=== PATIENT | female | born 2000 | race Caucasian/White ===

== ENCOUNTER 2020-03-20 23:03 | Inpatient (IN) | payer MEDICAID ==
[~2020-03-20] VITALS: Ht 162.6 cm; Wt 56.6 kg
--- NOTE | 2020-03-20 23:09 | NUR ---
SAMARA SHI presented to unit via ambulation from ED, accompanied by s.o., with c/o CONTRACTIONS. SAMARA SHI weighed, gowned, voided, and to bed. EFHM and TOCO applied, VS taken. SAMARA SHI oriented to bed controls, call light, TV, heat, and A/C controls.
[2020-03-20 23:26] VITALS: BP 127/82
[2020-03-20 23:31] VITALS: BP 127/82
[2020-03-20 23:40] LABS: BILIRUBIN,URINE NEGATIVE (NEGATIVE); CLARITY,URINE CLEAR; COLOR,URINE YELLOW; GLUCOSE, URINE (UA) NEGATIVE (NEGATIVE); KETONES,URINE TRACE (NEGATIVE); LEUKOCYTE ESTERASE ,URINE 1+ (NEGATIVE); NITRITE,URINE NEGATIVE (NEGATIVE); PH,URINE 6.5 (5-9); PROTEIN,URINE TRACE (NEGATIVE)
[2020-03-20 23:49] LABS: BACTERIA,URINE LARGE /HPF
[2020-03-20] MEDS ORDERED: AMPICILLIN FOR IV USE 2,000 MG VIAL ONE (23:50)
[2020-03-20] MEDS ORDERED: WATER (STERILE) FOR INJECTION 20 ML ONE (23:50)
[2020-03-20] MEDS ORDERED: D5 LR IV SOLUTION 1,000 ML IV ONE (23:50)
[2020-03-20] MEDS ORDERED: D5 LR IV SOLUTION 1,000 ML IV SCH (23:56)
[2020-03-20] MEDS ORDERED: AMPICILLIN FOR IV USE 2,000 MG in WATER (STERILE) FOR INJECTION 14.8 ML IV SCH (23:56)
[2020-03-21] VITALS (20 sets, daily range): BP systolic 109–146; BP diastolic 55–81
[2020-03-21 00:34] LABS: BILIRUBIN,URINE NEGATIVE (NEGATIVE); CLARITY,URINE CLOUDY; COLOR,URINE YELLOW; GLUCOSE, URINE (UA) NEGATIVE (NEGATIVE); KETONES,URINE TRACE (NEGATIVE); LEUKOCYTE ESTERASE ,URINE TRACE (NEGATIVE); NITRITE,URINE NEGATIVE (NEGATIVE); PH,URINE 6.5 (5-9); PROTEIN,URINE 1+ (NEGATIVE)
[2020-03-21 00:36] LABS: BASOPHILS % (AUTO) 0 % (0-10); EOSINOPHILS # (AUTO) 0.1 10^3/uL (0.0-0.3); EOSINOPHILS % (AUTO) 1 % (0-10); HEMATOCRIT 34 % (35-52); HEMOGLOBIN 11.4 G/DL (11.5-16.0); LYMPHOCYTES # (AUTO) 1.6 X 10^3 (1.0-4.0); LYMPHOCYTES % (AUTO) 11 % (12-44); MEAN CORPUSCULAR HEMOGLOBIN 31 PG (25-34); MEAN CORPUSCULAR HGB CONC 33 G/DL (32-36); MEAN CORPUSCULAR VOLUME 95 FL (80-99); MEAN PLATELET VOLUME 9.6 FL (7.4-10.4); MONOCYTES # (AUTO) 1.1 X 10^3 (0.0-1.0); MONOCYTES % (AUTO) 7 % (0-12); NEUTROPHILS # (AUTO) 12.1 X 10^3 (1.8-7.8); NEUTROPHILS % (AUTO) 82 % (42-75); PLATELET COUNT 443 10^3/uL (130-400); RED CELL DISTRIBUTION WIDTH 13.9 % (10.0-14.5); WHITE BLOOD COUNT 14.9 10^3/uL (4.3-11.0)
[2020-03-21 00:48] LABS: BACTERIA,URINE TRACE /HPF; SQUAMOUS EPITHELIAL CELL,UR RARE /HPF; WBC,URINE 0-2 /HPF
[2020-03-21 01:21] LABS: AMPHETAMINE SCREEN, URINE NEGATIVE (NEGATIVE); BARBITURATE SCREEN URINE NEGATIVE (NEGATIVE); BENZODIAZEPINES SCREEN URINE NEGATIVE (NEGATIVE); CANNABINOID SCREEN, URINE POSITIVE (NEGATIVE); COCAINE SCREEN URINE NEGATIVE (NEGATIVE); METHADONE STAT NEGATIVE (NEGATIVE); METHAMPHETAMINE SCREEN URINE S NEGATIVE (NEGATIVE); OPIATE SCREEN URINE NEGATIVE (NEGATIVE); OXYCODONE STAT NEGATIVE (NEGATIVE); PROPOXYPHENE STAT NEGATIVE (NEGATIVE); TRICYCLIC ANTIDEPRESSANTS SCRE NEGATIVE (NEGATIVE)
[2020-03-21] MEDS ORDERED: fentaNYL 2 mcg/ml BUPIVA 0.125 0 ML ONE (01:25)
[2020-03-21] MEDS ORDERED: LIDOCAINE/EPI 1%-1:200,000 (XYLOCAINE) 30 ML VIAL INJ ONE (01:30)
[2020-03-21] MEDS ORDERED: LIDOCAINE PF 2% 5 ML (XYLOCAINE) VIAL ONE (01:45)
[2020-03-21] MEDS ORDERED: fentaNYL INJECTION 100 MCG/2 ML AMP ONE (01:45)
[2020-03-21] MEDS ORDERED: BUPIVACAINE 0.25% 30 ML (SENSORCAINE) VIAL ONE (01:45)
[2020-03-21] MEDS ORDERED: OXYTOCIN PRE-MIX DRIP 500 ML IV ONE (01:54)
[2020-03-21] MEDS ORDERED: LIDOCAINE/EPI 2% 1:200,00 (XYLOCAINE) 20 ML VIAL ONE ×2 (01:54→01:59)
--- NOTE | 2020-03-21 02:40 | History & Physical ---
History and Physical Date Seen by Provider: Mar 21, 2020 Time Seen by Provider: 02:00 His patient is a 19-year-old 1 white female who presented near midnight in active labor. Her cervix was dilated 4 cm she quickly progressed to 6 cm. She expressed rupture membranes approximately an hour after admission. Her GBS culture had been positive after 35 weeks gestation she was started on ampicillin on admission. She had no other problems with this . Allergies are none Medications are vitamins Medical social and surgical histories are per the antepartum record HEENT exam is normal Neck is supple no lymphadenopathy and no thyromegaly Abdomen is gravid soft nontender nondistended Extremities show no clubbing or cyanosis. There is no Homans sign. Pelvic exam on my arrival patient was completed dilated 100 percent effaced the presenting part was the vertex was . Assessment and plan 37 week gestation at the time of delivery. With a precipitous delivery. Patient had received ampicillin approximately 2 hours before delivery. Spontaneous vaginal delivery Allergies and Home Medications Allergies Coded Allergies: No Known Drug Allergies (Unverified , 03/20/20) Patient Home Medication List Home Medication List Reviewed: Yes Clinical Quality Measures DVT/VTE Risk/Contraindication: Risk Factor Score Per Nursin RFS Level Per Nursing on Admit: 2=Moderate NATALEE VIRAMONTES MD Mar 21, 2020 02:40
[2020-03-21] MEDS ORDERED: TETANUS,DIPTH,PERTUSS P/F (BOOSTRIX) 0.5 ML VIAL IM ONE (02:45)
[2020-03-21] MEDS ORDERED: oxyCODONE/APAP 5/325MG (PERCOCET 5) TABLET PO PRN (02:45)
[2020-03-21] MEDS ORDERED: DCS100C PO (02:45)
[2020-03-21] MEDS ORDERED: MEASLES,MUMPS,RUBELLA 1 EA INJ SC ONE (02:45)
[2020-03-21] MEDS ORDERED: IBUP-1780 PO (02:45)
[2020-03-21] MEDS ORDERED: BENZOCAINE/MENTHOL (DERMOPLAST) 60 ML CAN TP PRN (02:45)
[2020-03-21] MEDS ORDERED: ONDANSETRON 4 MG/2 ML (SDV) Z0FRAN IVP PRN (02:45)
[2020-03-21] MEDS ORDERED: OXYC1TAB87 PO (02:45)
--- NOTE | 2020-03-21 02:46 | Discharge Inst-Surgical ---
Discharge Inst-Surgical Depart Medication/Instructions New, Converted or Re-Newed RX: RX on Chart Consults/Follow Up Patient Instructions: As directed Orders & Referrals Follow Up Appt: Call to make follow up appt. for patient in 4 weeks. Activity Per routine post vaginal delivery instructions. Please call in RX to patient pharmacy. Diet as tolerated Patient may shower or tub bathe as desired. Activity Activity as Tolerated: No Diet Discharge Diet: No Restrictions NATALEE VIRAMONTES MD Mar 21, 2020 02:45
[2020-03-21] MEDS: KETOROLAC 30 MG/ML VIAL IVP SCH ×2 (03:56→10:25)
[2020-03-21] MEDS ORDERED: PREN1TAB19 PO (03:58)
[2020-03-21] MEDS ORDERED: AMPICILLIN FOR IV USE 1,000 MG in WATER (STERILE) FOR INJECTION 7.4 ML IV SCH (04:00)
--- NOTE | 2020-03-21 05:17 | OPERATIVE REPORT ---
DATE OF SERVICE: 03/21/2020 DATE OF DELIVERY: 03/21/2020 The patient delivered by term spontaneous vaginal delivery, a viable female infant with Apgars of 9 and 9 at 1 and 5 minutes respectively. Weight that is 6 pounds, cord blood pH of 7.26. time about 02:08. The infant delivered over a second-degree perineal laceration under local analgesia. There was a single nuchal cord that was easily released. The infant was bulb suctioned on delivery of the head and again on completion of delivery. Umbilical cord was doubly clamped. Mother cut the cord, the baby was then passed to her abdomen. Placenta delivered spontaneously Bryson. It was normal with a 3-vessel cord. The cervix, vagina, rectum, and perineum were examined and found intact except for the second-degree perineal laceration, which was repaired with a single suture of 3-0 Vicryl Rapide in the usual manner to good hemostasis and good reapproximation. Sponge and needle counts were correct on completion of the delivery and repair. Estimated blood loss was 250 mL. The patient tolerated the delivery and the repair well and recovered in the LDR. The baby remained with the mom. Job ID: [id number] DocumentID: [id number] Dictated Date: 03/21/2020 02:48:31 Horologist Apprentice Date: 03/21/2020 05:16:45 Dictated By: NATALEE VIRAMONTES MD MTDD
[2020-03-21] MEDS ORDERED: CATHETER FLUSH 10 ML SYR IV SCH (06:00)
--- NOTE | 2020-03-21 07:53 | Progress Note ---
Standard Progress Note Progress Notes/Assess & Plan Date Seen by a Provider: Mar 21, 2020 Time Seen by a Provider: 07:52 Progress/Assessment & Plan Patient is without complaint. She is ambulating, voiding, tolerating oral intake well. Vital Signs Date Time Temp Pulse Resp B/P (MAP) Pulse Ox O2 Delivery O2 Flow Rate FiO2 03/21/20 04:31 36.7 64 18 117/55 (75) Room Air 03/21/20 04:01 36.6 75 18 115/64 (81) Room Air 03/21/20 03:46 77 18 118/68 (85) Room Air 03/21/20 03:31 36.4 81 18 114/67 (83) Room Air 03/21/20 03:16 78 18 112/63 (79) Room Air 03/21/20 03:01 36.4 88 18 123/69 (87) Room Air 03/21/20 02:46 36.6 93 18 127/72 (90) Room Air 03/21/20 02:32 93 18 139/81 (100) Room Air 03/21/20 02:11 36.8 88 18 146/67 (93) Room Air 03/21/20 02:06 78 18 138/73 (94) 99 Room Air 03/21/20 02:02 71 18 132/76 (94) 99 Room Air 03/21/20 01:54 97 18 146/68 (94) 94 Room Air 03/21/20 01:50 77 18 112/59 (76) Room Air 03/21/20 01:35 82 18 133/74 (93) Room Air 03/21/20 01:20 103 18 137/78 (97) Room Air 03/21/20 01:04 83 18 125/71 (89) Room Air 03/21/20 00:49 80 18 124/69 (87) Room Air 03/20/20 23:31 36.8 115 18 99 Room Air 03/20/20 23:26 36.8 115 18 99 Room Air Vital signs are stable. Patient is afebrile. The abdomen is benign. The fundus is firm below the umbilicus and nontender. Extremities show no clubbing cyanosis. There is no Homans sign. Assessment and plan day number 1 status post 37 week spontaneous vaginal delivery doing well. Plan is for routine convalescence care NATALEE VIRAMONTES MD Mar 21, 2020 07:53
[2020-03-21] MEDS ORDERED: WITCH HAZEL(TUCKS) 40 EA JAR ONE (08:30)
[2020-03-21] MEDS: DOCUSATE SODIUM 100 MG (COLACE) CAP PO SCH ×2 (08:43→21:03)
[2020-03-21] MEDS: IBUPROFEN 800 MG (MOTRIN) TAB PO SCH ×2 (16:53→21:03)
[2020-03-22 01:22] VITALS: BP 109/59
[2020-03-22] MEDS: IBUPROFEN 800 MG (MOTRIN) TAB PO SCH ×4 (03:44→21:01)
[2020-03-22 05:31] VITALS: BP 103/68
--- NOTE | 2020-03-22 07:21 | Progress Note ---
Standard Progress Note Progress Notes/Assess & Plan Date Seen by a Provider: Mar 22, 2020 Time Seen by a Provider: 07:20 Progress/Assessment & Plan Patient is without complaint. She is ambulating, voiding, tolerating oral intake well. Vital Signs Date Time Temp Pulse Resp B/P (MAP) Pulse Ox O2 Delivery O2 Flow Rate FiO2 03/21/20 04:31 36.7 64 18 117/55 (75) Room Air 03/21/20 04:01 36.6 75 18 115/64 (81) Room Air 03/21/20 03:46 77 18 118/68 (85) Room Air 03/21/20 03:31 36.4 81 18 114/67 (83) Room Air 03/21/20 03:16 78 18 112/63 (79) Room Air 03/21/20 03:01 36.4 88 18 123/69 (87) Room Air 03/21/20 02:46 36.6 93 18 127/72 (90) Room Air 03/21/20 02:32 93 18 139/81 (100) Room Air 03/21/20 02:11 36.8 88 18 146/67 (93) Room Air 03/21/20 02:06 78 18 138/73 (94) 99 Room Air 03/21/20 02:02 71 18 132/76 (94) 99 Room Air 03/21/20 01:54 97 18 146/68 (94) 94 Room Air 03/21/20 01:50 77 18 112/59 (76) Room Air 03/21/20 01:35 82 18 133/74 (93) Room Air 03/21/20 01:20 103 18 137/78 (97) Room Air 03/21/20 01:04 83 18 125/71 (89) Room Air 03/21/20 00:49 80 18 124/69 (87) Room Air 03/20/20 23:31 36.8 115 18 99 Room Air 03/20/20 23:26 36.8 115 18 99 Room Air Vital signs are stable. Patient is afebrile. The abdomen is benign. The fundus is firm below the umbilicus and nontender. Extremities show no clubbing cyanosis. There is no Homans sign. Assessment and plan day number 1 status post 37 week spontaneous vaginal delivery doing well. Plan is for routine convalescence care March 02 2020 Patient is without complaint. She is ambulating, voiding, tolerating oral intake and has good pain control. Patient is requesting discharge home. Vital Signs Date Time Temp Pulse Resp B/P (MAP) Pulse Ox O2 Delivery O2 Flow Rate FiO2 03/22/20 05:31 36.6 64 16 103/68 (80) 98 Room Air 03/22/20 01:22 36.2 51 16 109/59 (76) 98 Room Air 03/21/20 21:00 36.6 62 16 125/59 (81) 98 Room Air 03/21/20 13:00 37.1 69 16 110/58 (75) 98 Room Air 03/21/20 08:30 36.9 69 16 109/59 (76) 98 Room Air I & O 03/22/20 07:00 Intake Total 500 ml Balance 500 ml Vital signs are stable. Patient is afebrile. Fundus is firm below the umbilicus and nontender. Extremities show no clubbing or cyanosis. There is no Homans sign. Assessment and plan day number 2 status post spontaneous vaginal delivery at 37 weeks gestation. Plan is for discharge home with follow- up in clinic Final Diagnosis 37 week spontaneous vaginal delivery NATALEE VIRAMONTES MD Mar 22, 2020 07:21
[2020-03-22 07:55] VITALS: BP 104/66
[2020-03-22] MEDS: DOCUSATE SODIUM 100 MG (COLACE) CAP PO SCH ×2 (08:04→21:01)
[2020-03-22 14:00] VITALS: BP 104/63
--- NOTE | 2020-03-22 15:15 | NUR ---
report received form rahmannie cullen rn
--- NOTE | 2020-03-22 15:50 | NUR ---
dr ryder updated on pt report. pt stable, no complaints or complications. pt has not been DC'd due to infant. infant poor feeder.
[2020-03-22 19:50] VITALS: BP 121/60
[2020-03-23 03:18] VITALS: BP 101/54
[2020-03-23] MEDS: IBUPROFEN 800 MG (MOTRIN) TAB PO SCH ×2 (03:18→08:51)
--- NOTE | 2020-03-23 08:14 | Progress Note ---
Standard Progress Note Progress Notes/Assess & Plan Date Seen by a Provider: Mar 23, 2020 Time Seen by a Provider: 08:12 Progress/Assessment & Plan Patient is without complaint. She is ambulating, voiding, tolerating oral intake well. Vital Signs Date Time Temp Pulse Resp B/P (MAP) Pulse Ox O2 Delivery O2 Flow Rate FiO2 03/21/20 04:31 36.7 64 18 117/55 (75) Room Air 03/21/20 04:01 36.6 75 18 115/64 (81) Room Air 03/21/20 03:46 77 18 118/68 (85) Room Air 03/21/20 03:31 36.4 81 18 114/67 (83) Room Air 03/21/20 03:16 78 18 112/63 (79) Room Air 03/21/20 03:01 36.4 88 18 123/69 (87) Room Air 03/21/20 02:46 36.6 93 18 127/72 (90) Room Air 03/21/20 02:32 93 18 139/81 (100) Room Air 03/21/20 02:11 36.8 88 18 146/67 (93) Room Air 03/21/20 02:06 78 18 138/73 (94) 99 Room Air 03/21/20 02:02 71 18 132/76 (94) 99 Room Air 03/21/20 01:54 97 18 146/68 (94) 94 Room Air 03/21/20 01:50 77 18 112/59 (76) Room Air 03/21/20 01:35 82 18 133/74 (93) Room Air 03/21/20 01:20 103 18 137/78 (97) Room Air 03/21/20 01:04 83 18 125/71 (89) Room Air 03/21/20 00:49 80 18 124/69 (87) Room Air 03/20/20 23:31 36.8 115 18 99 Room Air 03/20/20 23:26 36.8 115 18 99 Room Air Vital signs are stable. Patient is afebrile. The abdomen is benign. The fundus is firm below the umbilicus and nontender. Extremities show no clubbing cyanosis. There is no Homans sign. Assessment and plan day number 1 status post 37 week spontaneous vaginal delivery doing well. Plan is for routine convalescence care March 02 2020 Patient is without complaint. She is ambulating, voiding, tolerating oral intake and has good pain control. Patient is requesting discharge home. Vital Signs Date Time Temp Pulse Resp B/P (MAP) Pulse Ox O2 Delivery O2 Flow Rate FiO2 03/22/20 05:31 36.6 64 16 103/68 (80) 98 Room Air 03/22/20 01:22 36.2 51 16 109/59 (76) 98 Room Air 03/21/20 21:00 36.6 62 16 125/59 (81) 98 Room Air 03/21/20 13:00 37.1 69 16 110/58 (75) 98 Room Air 03/21/20 08:30 36.9 69 16 109/59 (76) 98 Room Air I & O 03/22/20 07:00 Intake Total 500 ml Balance 500 ml Vital signs are stable. Patient is afebrile. Fundus is firm below the umbilicus and nontender. Extremities show no clubbing or cyanosis. There is no Homans sign. Assessment and plan day number 2 status post spontaneous vaginal delivery at 37 weeks gestation. Plan is for discharge home with follow- up in clinic March 23, 2020 Patient is without complaint. She is ambulating, voiding, tolerating oral intake well has good pain control. Vital Signs Date Time Temp Pulse Resp B/P (MAP) Pulse Ox O2 Delivery O2 Flow Rate FiO2 03/23/20 03:18 37.0 59 16 101/54 (70) 98 Room Air 03/22/20 19:50 37.0 68 16 121/60 (80) 98 Room Air 03/22/20 14:00 37.0 68 16 104/63 (77) 97 Room Air Vital signs are stable. Patient is afebrile. Fundus is firm below the umbilicus and nontender. Extremities show no clubbing cyanosis. There is no Homans sign. Assessment and plan status post spontaneous vaginal delivery at 37 weeks gestation. Patient doing well will be discharged home Final Diagnosis 37 week spontaneous vaginal delivery NATALEE VIRAMONTES MD Mar 23, 2020 08:14
--- NOTE | 2020-03-23 08:15 | Discharge Summary ---
Discharge Summary 37 week spontaneous vaginal delivery This patient is a 20-year-old 1 female who is admitted and active labor just before midnight at 36-6/7 weeks' gestation. She delivered after midnight putting her then at 37 weeks gestation. On day number 1 patient was without complaint. She is ablating, voiding, tolerating oral intake well and had good pain control. On day number 2 patient is now unchanged. She is ready for discharge home. Principal diagnoses this hospitalization is term spontaneous vaginal delivery Secondary diagnoses are labor precipitous labor and delivery and GBS positive culture Patient given appropriate discharge instructions verbally and in writing and a copy those placed in chart. Discharge medications are Percocet and Motrin and Colace. Patient is given return to clinic instructions and precautions. Clinical Quality Measures DVT/VTE Risk/Contraindication: Risk Factor Score Per Nursin RFS Level Per Nursing on Admit: 2=Moderate NATALEE VIRAMONTES MD Mar 23, 2020 08:15
[2020-03-23] MEDS: DOCUSATE SODIUM 100 MG (COLACE) CAP PO SCH (08:51)
[2020-03-23 09:29] VITALS: BP 112/84
== END 2020-03-23 12:15 | disposition home or self-care (01) | DRG 805 ==
LOC: WSo 23:03 → LDRP 23:04 → WSo 03-21 00:45 → LDRP 03-21 00:45
PROVIDERS: ADMIT Obstetrics & Gynecology; ATTEND Obstetrics & Gynecology
PROC: 10E0XZZ Delivery of Products of Conception, External Approach (ICD-10-PCS; principal; 2020-03-21)
PROC: 0KQM0ZZ Repair Perineum Muscle, Open Approach (ICD-10-PCS; 2020-03-21)
DX: O62.3 Precipitate labor (principal); O60.23X0 Term delivery with preterm labor, third trimester, not applicable or unspecified; O70.1 Second degree perineal laceration during delivery; O99.824 Streptococcus B carrier state complicating childbirth; O69.81X0 Labor and delivery complicated by cord around neck, without compression, not applicable or unspecified; Z37.0 Single live birth; Z3A.37 37 weeks gestation of pregnancy; Z23 Encounter for immunization
CPT/HCPCS: 36415; 80306; 81000; 82570; 84156; 85025; 86780; 86850; 86900; 86901; 87088; 90707; 90715; 99212